=== PATIENT | female | born 1960 | race Caucasian/White ===

== ENCOUNTER → 2023-11-13 07:53 | Outpatient (REF) | payer BC, SELFPAY | LOC: HWWDC 07:53 | PROVIDERS: ATTENDING PHYSICIAN Obstetrics & Gynecology; FAMILY PHYSICIAN Nurse Practitioner | DX: Z12.31 Encounter for screening mammogram for malignant neoplasm of breast (principal) | CPT/HCPCS: 77063; 77067 ==

== ENCOUNTER → 2024-02-04 17:05 | Outpatient (REF) | payer BC, SELFPAY | LOC: HWRAD 17:05 | PROVIDERS: ATTENDING PHYSICIAN Internal Medicine | DX: M25.551 Pain in right hip (principal) | CPT/HCPCS: 73523 ==

== ENCOUNTER → 2024-08-14 14:32 | Outpatient (REF) | payer BC, SELFPAY | LOC: HWRAD 14:32 | PROVIDERS: ATTENDING PHYSICIAN Internal Medicine Cardiovascular Disease | DX: R60.0 Localized edema (principal) | CPT/HCPCS: 93970 ==

== ENCOUNTER → 2024-09-09 13:34 | Outpatient (REF) | payer BC, SELFPAY ==
[2024-09-09 15:57] LABS: Hematocrit 41.5 % (37.0-47.0); Hemoglobin 14.7 g/dL (12.0-16.0); Mean Corp Hgb Conc. 35.4 g/dL (33.0-37.0); Mean Corpuscular Volume 100.0 fL (81.0-99.0); Nucleated Red Blood Cells % 0 %; Platelet Count 203 10^3/uL (130-400); Red Cell Dist. Width 14.5 % (11.5-14.5)
[2024-09-09 16:17] LABS: Blood Urea Nitrogen 15 mg/dl (7-17); Calcium 9.4 mg/dl (8.4-10.2); Carbon Dioxide 33 mmol/L (22-30); Chloride 96 mmol/L (98-107); Glucose 103 mg/dl (70-99); Potassium 3.2 mmol/L (3.5-5.1); Sodium 137 mmol/L (135-145); eGFR > 60.00
[2024-09-09 16:21] LABS: C-Reactive Protein 9.30 mg/L (0.0-10.00)
== END ==
LOC: HWLAB 13:34
PROVIDERS: ATTENDING PHYSICIAN Internal Medicine Cardiovascular Disease
DX: I77.6 Arteritis, unspecified (principal); R60.0 Localized edema
CPT/HCPCS: 36415; 71046; 80048; 83880; 85025; 85652; 86140

== ENCOUNTER → 2024-09-16 07:35 | Outpatient (REF) | payer BC, SELFPAY | LOC: RCS 07:35 | PROVIDERS: ATTENDING PHYSICIAN Internal Medicine Cardiovascular Disease | DX: R06.09 Other forms of dyspnea (principal); I10 Essential (primary) hypertension; R60.0 Localized edema | CPT/HCPCS: 93307; Q9957 ==

== ENCOUNTER → 2025-01-04 07:47 | Outpatient (REF) | payer BC, SELFPAY | LOC: HWWDC 07:47 | DX: Z12.31 Encounter for screening mammogram for malignant neoplasm of breast (principal) | CPT/HCPCS: 77063; 77067 ==